=== PATIENT | female | born 1995 ===

== ENCOUNTER 2018-04-30 10:30 | Emergency (ER) | payer BC, MEDICAID ==
[2018-04-30 10:30] VITALS: BMI 19.5
[2018-04-30 11:26] LABS: BASO % 0.5 % (0.0-2.0); EOS # 0.1 K/uL (0.0-0.7); EOS % 0.7 % (0.0-4.0); HEMOGLOBIN 13.3 g/dL (12.0-16.0); LYMPH # 1.5 K/uL (1.0-4.3); LYMPH % 16.8 % (20.0-40.0); MEAN CELL VOLUME 94.3 fl (81.0-99.0); MEAN CORPUSCULAR HEMOGLOBIN 31.8 pg (27.0-31.0); MEAN CORPUSCULAR HGB CONC 33.7 g/dL (33.0-37.0); MEAN PLATELET VOLUME 8.5 fl (7.2-11.7); MONO # 0.4 K/uL (0.0-0.8); MONO % 4.2 % (0.0-10.0); NEUT # 7.1 K/uL (1.8-7.0); NEUT % 77.8 % (50.0-75.0); NRBC % 0.1 % (0.0-0.0); RBC 4.19 Mil/uL (3.80-5.20); WHITE BLOOD COUNT 9.1 K/uL (4.8-10.8)
[2018-04-30 11:37] LABS: ALB/GLOB RATIO 1.4 (1.0-2.1); ALBUMIN 4.6 g/dL (3.5-5.0); ALT/SGPT 22 U/L (9-52); AST/SGOT 23 U/L (14-36); BLOOD UREA NITROGEN 13 mg/dl (7-17); CALCIUM 9.4 mg/dL (8.4-10.2); GFR NON-AFRICAN AMERICAN > 60
[2018-04-30 11:45] LABS: URINE BILIRUBIN NEGATIVE (NEGATIVE); URINE BLOOD LARGE (NEGATIVE); URINE CLARITY CLEAR (Clear); URINE COLOR AMBER (YELLOW); URINE GLUCOSE (UA) NEG (NEGATIVE); URINE LEUKOCYTE ESTERASE NEG Leu/uL (Negative); URINE PROTEIN 100 mg/dL (NEGATIVE); URINE UROBILINOGEN 0.2-1.0 mg/dL (0.2-1.0)
[2018-04-30 11:54] LABS: SQUAMOUS EPITHIAL 2 /hpf (0-5)
[2018-04-30 11:55] LABS: URINE BACTERIA FEW (<OCC)
--- NOTE | 2018-04-30 12:03 | ED PDOC ---
HPI: Abdomen Time Seen by Provider: 04/30/18 10:56 Chief Complaint (Nursing): Abdominal Pain History Per: Patient Additional Complaint(s): Pt. states earlier today she developed suprapubic which woke her up from sleep. Shortly after she developed nausea but no vomiting. She attempted to take Motrin as he believed pain was due to menstrual cramps as she is on the 3rd day of her cycle. Denies dysuria, hx of anemia, previous blood transfusions, diarrhea, fever, chills. Past Medical History Reviewed: Historical Data, Nursing Documentation, Vital Signs Vital Signs: Last Vital Signs Temp 97.0 F L 04/30/18 10:49 Pulse 78 04/30/18 10:49 Resp 18 04/30/18 10:49 BP 114/62 04/30/18 10:49 Pulse Ox 99 04/30/18 10:49 - Medical History PMH: Denies: Gall Bladder Disease - Surgical History Surgical History: No Surg Hx - Family History Family History: States: No Known Family Hx - Immunization History Hx Tetanus Toxoid Vaccination: No Hx Influenza Vaccination: No Hx Pneumococcal Vaccination: No - Home Medications Home Medications: Ambulatory Orders Medication Instructions Recorded Naproxen [Naprosyn] 1 tab PO BID PRN #20 tab 02/15/17 Nitrofurantoin Macrocrystals 1 cap PO BID #14 cap 02/15/17 [Macrobid] Naproxen [Naprosyn] 500 mg PO BID PRN #10 tab 04/30/18 Ondansetron ODT [Zofran ODT] 4 mg PO TID #10 odt 04/30/18 - Allergies Allergies/Adverse Reactions: Allergies Allergy/AdvReac Type Severity Reaction Status Date / Time No Known Allergies Allergy Verified 11/06/16 09:01 Review of Systems ROS Statement: Except As Marked, All Systems Reviewed And Found Negative Genitourinary Female: Positive for: Vaginal Bleeding, Pelvic Pain Physical Exam - Physical Exam Appears: Positive for: Well, Non-toxic, No Acute Distress Skin: Positive for: Normal Color, Warm. Negative for: Rash Eye Exam: Positive for: Normal appearance Gastrointestinal/Abdominal: Positive for: Normal Exam, Bowel Sounds, Soft. Negative for: Tenderness Back: Positive for: Normal Inspection. Negative for: L CVA Tenderness, R CVA Tenderness Neurologic/Psych: Positive for: Alert, Oriented (x3) - Laboratory Results Result Diagrams: 04/30/18 11:15 04/30/18 11:15 Lab Results: Total Bilirubin 0.6 mg/dl (0.2-1.3) 04/30/18 11:15 AST 23 U/L (14-36) 04/30/18 11:15 ALT 22 U/L (9-52) 04/30/18 11:15 Alkaline Phosphatase 54 U/L (38-126) 04/30/18 11:15 Total Protein 7.8 G/DL (6.3-8.2) 04/30/18 11:15 Albumin 4.6 g/dL (3.5-5.0) 04/30/18 11:15 Globulin 3.2 gm/dL (2.2-3.9) 04/30/18 11:15 Albumin/Globulin Ratio 1.4 (1.0-2.1) 04/30/18 11:15 Urine Color Mary (YELLOW) 04/30/18 11:15 Urine Clarity Clear (Clear) 04/30/18 11:15 Urine pH 6.0 (5.0-8.0) 04/30/18 11:15 Ur Specific [place] 1.028 (1.003-1.030) 04/30/18 11:15 Urine Protein 100 mg/dL (NEGATIVE) 04/30/18 11:15 Urine Glucose (UA) Neg mg/dL (NEGATIVE) 04/30/18 11:15 Urine Ketones Negative mg/dL (NEGATIVE) 04/30/18 11:15 Urine Blood Large (NEGATIVE) 04/30/18 11:15 Urine Nitrate Negative (NEGATIVE) 04/30/18 11:15 Urine Bilirubin Negative (NEGATIVE) 04/30/18 11:15 Urine Urobilinogen 0.2-1.0 mg/dL (0.2-1.0) 04/30/18 11:15 Ur Leukocyte Esterase Neg [place]/uL (Negative) 04/30/18 11:15 Urine RBC (Auto) 900 /hpf (0-3) H 04/30/18 11:15 Urine Microscopic WBC 6 /hpf (0-5) H 04/30/18 11:15 Ur Squamous Epith Cells 2 /hpf (0-5) 04/30/18 11:15 Urine Bacteria Few (<OCC) H 04/30/18 11:15 - ECG O2 Sat by Pulse Oximetry: 99 - Progress ED Course And Treament: Labs, pelvic US, toradol 30mg IV, zofran 4mg IV ordered. 1230 Pt. was drinking water for US but then started vomiting. Reglan 10mg IVPB ordered. 1344 On re-evaluation, pt. reports good relief of pelvic pain. Nausea has improved but still present. 1511 On re-evaluation, pt. reports symptoms have not returned. Currently asymptomatic. No nausea or pelvic pain. Informed of all results and advised to f/u with [facility] for further evaluation but return to ED immediately if symptoms worsen. Disposition - Clinical Impression Clinical Impression: Dysmenorrhea - Patient ED Disposition Is Patient to be Admitted: No - Disposition [facility] Disposition: Routine/Home Disposition Time: 15:12 Condition: IMPROVED Additional Instructions: FOLLOW UP WITH OBGYN FOR FURTHER EVALUATION RETURN TO ED IMMEDIATELY IF SYMPTOMS WORSEN TRES [place], thank you for letting us take care of you today. Your provider was Elena Kline MD and you were treated for ABD PAIN. The emergency medical care you received today was directed at your acute symptoms. If you were prescribed any medication, please fill it and take as directed. It may take several days for your symptoms to resolve. Return to the Emergency Department if your symptoms worsen, do not improve, or if you have any other problems. Please contact your doctor or call one of the physicians/clinics you have been referred to that are listed on the Patient Visit Information form that is included in your discharge packet. Bring any paperwork you were given at [facility] with you along with any medications you are taking to your follow up visit. Our treatment cannot replace ongoing medical care by a primary care provider outside of the emergency department. Thank you for allowing the [facility] team to be part of your care today. If you had an X-Ray or CT scan: A Radiologist will review the ED reading if any change in treatment is needed we will contact you. If you had a blood, urine, or wound culture: It will take several days for the results, if any change in treatment is needed we will contact you. If you had an STI test: It will take 48 hours for the results. Please call after 1 week if you have not heard back. Prescriptions: Naproxen [Naprosyn] 500 mg PO BID PRN #10 tab PRN Reason: Pain Ondansetron ODT [Zofran ODT] 4 mg PO TID #10 odt Instructions: Menstrual Cramps (DC), Painful Periods Forms: [facility] ([place]), [facility] ED School/Work Excuse
--- NOTE | 2018-04-30 14:51 | US ---
Date of service: 04/30/2018 HISTORY: suprapubic pain COMPARISON: None available. TECHNIQUE: Transabdominal only FINDINGS: UTERUS: Measures 7.0 x 5.9 x 3.5 cm. Normal in size and appearance. No fibroid or other mass lesion seen. ENDOMETRIUM: Measures 8 mm in diameter. Unremarkable. CERVIX: Trace endocervical fluid. No mass identified. RIGHT OVARY: Measures 2.7 x 2.0 x 1.5 cm. No solid mass. Normal flow. LEFT OVARY: Measures 3.6 x 2.6 x 1.5 cm. No solid mass. Normal flow. FREE FLUID: No significant free fluid noted. OTHER FINDINGS: None. IMPRESSION: Trace endocervical fluid. Otherwise unremarkable examination.
[2018-04-30 15:25] VITALS: BP 125/80; PULSE 81; RESP 161; TEMP 97.9; O2SAT 100
== END 2018-04-30 15:31 | disposition home or self-care (01) ==
LOC: H.ER 10:30
DX: N94.6 Dysmenorrhea, unspecified (principal)
CPT/HCPCS: 76856; 80053; 81003; 81025; 85025; 96374; 96375; 99283; J1885; J2405; J2765